=== PATIENT | male | born 1970 | race Caucasian/White ===

== ENCOUNTER 2019-07-11 11:05 | Emergency (ER) | payer SELFPAY ==
--- NOTE | 2019-07-11 11:46 | EDM.PDOC ---
ED HPI GENERAL MEDICAL PROBLEM - General Chief Complaint: Upper Extremity Injury/Pain Stated Complaint: ARM Time Seen by Provider: 07/11/19 11:20 Source of Information: Reports: Patient History Limitations: Reports: No Limitations - History of Present Illness INITIAL COMMENTS - FREE TEXT/NARRATIVE: Patient comes emergency department today from work with complaints of right elbow arm injury and pain. 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 Is not doing anything out of the norm other than climbing the rings of a cell phone tower. His pain came on rather suddenly. He was able to assist himself down to the ground. He denies any paresthesias of the right hand. No other injury other than to the medial volar aspect of his right elbow. He has never had anything like this before. He does not identify any change in the functionality or the overt physical appearance of his right arm. Right Elbow Pain Score (Numeric/FACES): 5 - Related Data Allergies Allergy/AdvReac Type Severity Reaction Status Date / Time No Known Allergies Allergy Verified 07/11/19 11:20 Home Meds: Home Meds Albuterol Sulfate [Albuterol Sulfate Hfa] 8.5 gm IH ASDIRECTED PRN 07/11/19 [ History] Past Medical History Respiratory History: Reports: Asthma Social & Family History - Tobacco Use Smoking Status *Q: Current Every Day Smoker Years of Tobacco use: 26 Packs/Tins Daily: 1 - Recreational Drug Use Recreational Drug Use: Yes Recreational Drug Type: Reports: Marijuana/Hashish Review of Systems - Review of Systems Review Of Systems: Comprehensive ROS is negative, except as noted in HPI. ED EXAM, GENERAL - Physical Exam Exam: See Below Exam Limited By: No Limitations General Appearance: Alert, WD/WN, No Apparent Distress Respiratory/Chest: No Respiratory Distress Cardiovascular: Normal Peripheral Pulses Peripheral Pulses: 2+: Brachial (L), Brachial (R), Radial (L), Radial (R) Extremities: Normal Inspection (Other than tenderness on the medial volar aspect of the right elbow of the arm is really unremarkable. He is able to flex and extend at the elbow appropriately. There is no change in the physical contour of the arm. Range of motion is appropriately and passively. Good strength with flexion and extension. He has normal fine and gross motor of the right upper extremity.), Normal Range of Motion. No: Non-Tender (He has tenderness on the medial volar aspect of the elbow that is rather unremarkable by physical exam.) Neurological: Alert, Oriented, Normal Cognition, No Motor/Sensory Deficits Psychiatric: Normal Affect, Normal Mood Skin Exam: Warm, Dry, Intact, Normal Color Course - Vital Signs Last Recorded V/S: Last Vital Signs Temp 36.9 C 07/11/19 11:08 Pulse 68 07/11/19 11:08 Resp 16 07/11/19 11:08 BP 127/72 07/11/19 11:08 Pulse Ox 95 07/11/19 11:08 - Re-Assessments/Exams Free Text/Narrative Re-Assessment/Exam: 07/11/19 17:10 Splane to the patient that this is most likely a sprain of the elbow or other soft tissue such as ligament tendon or muscle. I do not identify the need for an x-ray at this time as there has been no physical trauma or damage. Range of motion is appropriate. He does not have any tenderness or pain to the arm unless palpated. We will try conservative management with a bucket sling at this time NSAIDs and ice if not improving in a week And follow-up with primary care and physical therapy. He is comfortable with this plan his questions are answered. Departure - Departure Time of Disposition: 11:33 Disposition: Home, Self-Care 01 Clinical Impression: Elbow sprain Qualifiers: Encounter type: initial encounter Laterality: right Qualified Code(s): S53.401A - Unspecified sprain of right elbow, initial encounter - Discharge Information Instructions: How to Use Cold Therapy, [id number], Pain Medicine Instructions , [id number] Referrals: PCP,None [Primary Care Provider] - Forms: ED Department Discharge Additional Instructions: Wear the arm bucket sling for the next week. Reduce usage of the right arm as much as possible. Rice therapy, REST as much as possible. Ice as per discharge instruction sheet. Still take your arm out of the sling and go through Range of Motion with it to keep from getting too stiff. Tylenol and or Ibuprofen as needed for pain. See physical therapy in a week if not improving. Return to the ED if new or worsening symptoms. Follow up with PCP in the next week if not improving consider physical therapy. Sepsis Event Note - Evaluation Sepsis Screening Result: No Definite Risk - Focused Exam Vital Signs: Vital Signs Temp Pulse Resp BP Pulse Ox 07/11/19 11:08 36.9 C 68 16 127/72 95 Date Exam was Performed: 07/11/19 Time Exam was Performed: 17:08 - Assessment/Plan Assessment:: RIght elbow sprain strain Plan: Wear the arm bucket sling for the next week. Reduce usage of the right arm as much as possible. Rice therapy, REST as much as possible. Ice as per discharge instruction sheet. Still take your arm out of the sling and go through Range of Motion with it to keep from getting too stiff. Tylenol and or Ibuprofen as needed for pain. See physical therapy in a week if not improving. Return to the ED if new or worsening symptoms. Follow up with PCP in the next week if not improving consider physical therapy.
== END 2019-07-11 11:45 | disposition home or self-care (01) ==
LOC: VM.ED 11:05
DX: S53.401A Unspecified sprain of right elbow, initial encounter (principal); F17.210 Nicotine dependence, cigarettes, uncomplicated; X50.9XXA Other and unspecified overexertion or strenuous movements or postures, initial encounter
CPT/HCPCS: 99283; 99283-GF